=== PATIENT | male | born 1940 | race American Indian/Alaskan Native ===

== ENCOUNTER 2021-05-29 12:59 | Emergency (ER) | payer MEDICARE ==
--- NOTE | 2021-05-29 13:07 | Emergency Department Report ---
ED General Adult HPI - General Chief complaint: Medical Clearance Stated complaint: POSSIBLE POTASSIUM ISSUE Time Seen by Provider: 05/29/21 13:03 - History of Present Illness Initial comments: Patient was brought in by ambulance for possible hypokalemia. had provided history to EMS. Apparently, the patient has a history of electrolyte derangement. His doctor had referred him for evaluation and treatment due to his prior history. The patient actually has no complaint. He states that he has not had any vomiting or diarrhea. He has no chest pain or shortness of breath. He does state that he feels generally weak. The weakness is not new. This has been ongoing for him. There is no new focal weakness. Patient does not know if his potassium is abnormal or not. He cannot recall whether he really had a potassium problem or something different. is not present for history. History is obtained from EMS. - Related Data Allergies Allergy/AdvReac Type Severity Reaction Status Date / Time No Known Allergies Allergy Unverified 05/29/21 13:01 ED Review of Systems ROS: Stated complaint: POSSIBLE POTASSIUM ISSUE Other details as noted in HPI Comment: All other systems reviewed and negative Constitutional: denies: fever Eyes: denies: vision change ENT: denies: ear pain Respiratory: cough (Nonproductive) Cardiovascular: denies: chest pain Endocrine: denies: unexplained weight loss Gastrointestinal: denies: abdominal pain Genitourinary: denies: dysuria Musculoskeletal: denies: back pain Skin: denies: rash Neurological: denies: headache Hematological/Lymphatic: denies: easy bruising ED Physical Exam - General Limitations: Other (Poor historian) General appearance: alert, in no apparent distress, other (Pulse ox noted and normal. Frail) - Head Head exam: Present: atraumatic, normocephalic - Eye Eye exam: Present: normal appearance, EOMI - ENT ENT exam: Present: mucous membranes dry, normal external ear exam - Neck Neck exam: Present: normal inspection. Absent: meningismus - Respiratory Respiratory exam: Present: rhonchi (Bilateral). Absent: respiratory distress - Cardiovascular Cardiovascular Exam: Present: regular rate, normal rhythm - GI/Abdominal GI/Abdominal exam: Present: soft. Absent: tenderness - Extremities Exam Extremities exam: Present: normal capillary refill. Absent: pedal edema - Back Exam Back exam: Absent: CVA tenderness (R), CVA tenderness (L) - Neurological Exam Neurological exam: Present: alert, altered (Confused about his own personal history), CN II-XII intact, reflexes normal. Absent: motor sensory deficit - Psychiatric Psychiatric exam: Present: normal affect, normal mood - Skin Skin exam: Present: warm, dry ED Course Vital Signs 05/29/21 05/29/21 13:02 14:50 Pulse Rate 74 81 Respiratory 18 16 Rate Blood Pressure 142/98 126/81 [Left] O2 Sat by Pulse 98 99 Oximetry - Reevaluation(s) Reevaluation #1: 05/29/21 13:05 EMS was met upon arrival. IV and labs ordered. Old records reviewed. EKG was ordered. ED Medical Decision Making - Lab Data Result diagrams: 05/29/21 14:13 05/29/21 14:13 - Medical Decision Making Patient presents with reports of abnormal labs. His labs have been reviewed. There is no abnormality that would require admission. He does have hypercalc emia which can be treated with oral hydration. He does not have any significant potassium derangement that would require admission. He does not have any evidence of acute fever or toxicity. He does not appear to be septic. Patient was discharged. Critical Care Time: No Critical care attestation.: If time is entered above; I have spent that time in minutes in the direct care of this critically ill patient, excluding procedure time. ED Disposition Clinical Impression: Generalized weakness, Hypercalcemia Disposition: HOME / SELF CARE / HOMELESS Is pt being admited?: No Condition: Stable Instructions: Fatigue, Hypercalcemia Additional Instructions: Drink any water. Avoid calcium. Do not drink significant amounts of milk or eat dairy products. Follow-up with your regular doctor for recheck. Referrals: PRIMARY CARE, [Referring] - 3-5 Days
[2021-05-29 14:53] LABS: Mean Corpuscular HGB Conc 31 % (32-34); Mean Corpuscular Volume 91 fl (84-94); Platelet Count 293 K/mm3 (140-440); Red Blood Count 4.42 M/mm3 (3.65-5.03); Red Cell Distribution Width 13.3 % (13.2-15.2)
[2021-05-29 14:54] LABS: Hematocrit 40.2 % (35.5-45.6); Hemoglobin 12.3 gm/dl (11.8-15.2)
[2021-05-29 15:02] LABS: Calcium 11.4 mg/dL (8.4-10.2)
[2021-05-29] MEDS ORDERED: PHENYTOIN 100 MG CAPSULE.ER PO ONE (17:42)
[2021-05-29 22:21] VITALS: BP 105/74
--- NOTE | 2021-05-30 07:31 | Emergency Department Report ---
Blank Doc - Documentation Documentation: Apparently EMS was unwilling to transport the patient yesterday because his bl ood pressure was 90 systolic. Patient was thin and emaciated. He was not tachycardic. Patient was supposed to go to a alf today. We are awaiting transport. He has no complaints at this time.
--- NOTE | 2021-05-30 13:09 | Electrocardiograph Report ---
[facility] Test Date: 2021-05-29 Test Time: 15:22:01 Pat Name: MELL YOUNG Department: Room: Gender: M Asic Engineer: WILMAN : 1940 Requested By: INOCENCIO OLIVARES Order Number: [id number] Reading MD: Lesvia Caldwell Measurements Intervals [place] Rate: 76 P: 77 UT: 156 QRS: 43 QRSD: 105 T: 50 QT: 398 QTc: 447 Interpretive Statements Sinus rhythm Ventricular premature complex Probable left atrial enlargement No previous ECG available for comparison Electronically Signed On 05-30-2021 13:09:09 EST by Lesvia Caldwell
== END 2021-05-30 12:00 | disposition home or self-care (01) ==
LOC: ED 12:59
DX: R53.1 Weakness (principal); E83.52 Hypercalcemia
CPT/HCPCS: 36415; 80048; 82962; 83735; 84132; 85027; 93005; 99284